=== PATIENT | male | born 1985 | race American Indian/Alaskan Native ===

== ENCOUNTER 2017-08-25 19:28 | Emergency (ER) | payer OTHER ==
[2017-08-25 19:28] VITALS: BMI 37.3
[2017-08-25 20:51] VITALS: BP 147/79; PULSE 87; RESP 18; TEMP 98.2; O2SAT 99
[2017-08-25] MEDS ORDERED: Oxycodone/Acetaminophen 5/325 mg Tab PO STA (21:34)
--- NOTE | 2017-08-25 21:44 | ED PDOC ---
Lower Extremity Pain/Injury Time Seen by Provider: 08/25/17 21:24 Chief Complaint (Nursing): Lower Extremity Problem/Injury History Per: Patient History/Exam Limitations: no limitations Onset/Duration Of Symptoms: Days Current Symptoms Are (Timing): Still Present Additional Complaint(s): Patient with no PMHx presenting with R knee swelling/leg pain, states that one week ago he had an injury, went to [facility] [place], had an x-ray done, was seen by outpatient orthopedics and was placed in removable knee brace, states that he was walking today and felt his R knee give out and had severe pain. Took 3 advils prior to arrival. Denies other injuries. Due for MRI tomorrow. Past Medical History Reviewed: Historical Data, Nursing Documentation, Vital Signs Vital Signs: Last Vital Signs Temp 98.2 F 08/25/17 20:48 Pulse 87 08/25/17 20:48 Resp 18 08/25/17 20:48 BP 147/79 08/25/17 20:48 Pulse Ox 99 08/25/17 20:48 - Medical History PMH: Denies: Depression - Family History Family History: States: Unknown Family Hx - Home Medications Home Medications: Ambulatory Orders Medication Instructions Recorded Ondansetron ODT [Zofran ODT] 8 mg PO TID #30 odt 04/27/17 Ibuprofen [Motrin] 600 mg PO Q6 PRN #30 tab 08/15/17 - Allergies Allergies/Adverse Reactions: Allergies Allergy/AdvReac Type Severity Reaction Status Date / Time No Known Allergies Allergy Verified 08/25/17 20:48 Review of Systems Musculoskeletal: Positive for: Leg Pain Physical Exam - Reviewed Nursing Documentation Reviewed: Yes Vital Signs Reviewed: Yes - Physical Exam Appears: Positive for: Well, Non-toxic, No Acute Distress Head Exam: Positive for: ATRAUMATIC, NORMAL INSPECTION, NORMOCEPHALIC Extremity: Positive for: Tenderness (R knee with effusoin, decreased ROM 2/2 to pain and swelling, NV intact, 2+ DP's, neg Homanns sign), Swelling - Laboratory Results Result Diagrams: 08/25/17 23:55 08/25/17 23:55 - ECG O2 Sat by Pulse Oximetry: 99 Pulse Ox Interpretation: Normal Medical Decision Making Medical Decision MakinPM A/P: Hx of knee injury presenting with increased swelling -likely pain secondary to increased swelling secondary to possible ligamentous injury -will get CT to r/o furhter pathology, U/S to r/o DVT -pain control -will re-eval 6 US DUPLEX LOWER EXTREMITY VEIN RT Deep veins: Normal color and spectral Doppler flow. Normal compressibility. No deep vein thrombosis. Superficial veins: No thrombosis. Soft tissues: No popliteal cyst. IMPRESSION: No evidence of DVT within right lower extremity. EXAM: CT Right Lower Extremity Without Intravenous Contrast, Knee CLINICAL HISTORY: 32 years old, male; Pain; Knee; Left; Additional info: Worsening r knee swelling /pain after injury 1 wk TECHNIQUE: Axial computed tomography images of the right knee without intravenous contrast. All CT scans at this facility use one or more dose reduction techniques, viz.: automated exposure control; ma/kV adjustment per patient size (including targeted exams where dose is matched to indication; i.e. head); or iterative reconstruction technique. Coronal and sagittal reformatted images were created and reviewed. COMPARISON: No relevant prior studies available. FINDINGS: Bones/joints: No acute fracture. Osteochondral abnormality with few adjacent loose fragments along posterior aspect of medial femoral condyle. Mild osteoarthrosis of medial compartment. Early osteoarthrosis of patellofemoral compartment. Lateral patellar subluxation. No dislocation. Moderate joint effusion. Soft tissues: Mild anterior soft tissue swelling/fluid. IMPRESSION: 1. Osteochondral abnormality of medial femoral condyle, unstable. 2. Incidental/non-acute findings are described above. 130AM After adequate pain control, patient is now able to bend leg. Spoke with Dr. Guevara Palomares who recommends patient to be non-weight bearing. Will give outpatient referral informatoin, patient feeling much impoved. Crutches and knee immobilizer applied. Scribe Attestation: Documented by Nancy Benson acting as a scribe for Rogers Spring MD. Scribe Attestation: All medical record entries made by the Scribe were at my direction and personally dictated by me. I have reviewed the chart and agree that the record accurately reflects my personal performance of the history, physical exam, medical decision making, and the department course for this patient. I have also personally directed, reviewed, and agree with the discharge instructions and disposition. Disposition - Clinical Impression Clinical Impression: Knee pain - Patient ED Disposition Is Patient to be Admitted: No - Disposition Referrals: Ed Dia MD [Staff Provider] - Disposition: Routine/Home Disposition Time: 02:00 Condition: IMPROVED Instructions: Knee Pain, Joint Pain Forms: [facility] ([place])
--- NOTE | 2017-08-25 23:21 | CT ---
EXAM: CT Right Lower Extremity Without Intravenous Contrast, Knee CLINICAL HISTORY: 32 years old, male; Pain; Knee; Left; Additional info: Worsening r knee swelling/pain after injury 1 wk TECHNIQUE: Axial computed tomography images of the right knee without intravenous contrast. All CT scans at this facility use one or more dose reduction techniques, viz.: automated exposure control; ma/kV adjustment per patient size (including targeted exams where dose is matched to indication; i.e. head); or iterative reconstruction technique. Coronal and sagittal reformatted images were created and reviewed. COMPARISON: No relevant prior studies available. FINDINGS: Bones/joints: No acute fracture. Osteochondral abnormality with few adjacent loose fragments along posterior aspect of medial femoral condyle. Mild osteoarthrosis of medial compartment. Early osteoarthrosis of patellofemoral compartment. Lateral patellar subluxation. No dislocation. Moderate joint effusion. Soft tissues: Mild anterior soft tissue swelling/fluid. IMPRESSION: 1. Osteochondral abnormality of medial femoral condyle, unstable. 2. Incidental/non-acute findings are described above.
--- NOTE | 2017-08-25 23:27 | US ---
EXAM: US Duplex Right Lower Extremity Veins CLINICAL HISTORY: 32 years old, male; Signs and symptoms; Swelling of limb; Lower extremity, right; Additional info: Leg swelling after injury, R/O dvt TECHNIQUE: Real-time duplex ultrasound scan of the right lower extremity veins integrating B-mode two-dimensional vascular structure, Doppler spectral analysis, color flow Doppler imaging and compression. COMPARISON: No relevant prior studies available. FINDINGS: Deep veins: Normal color and spectral Doppler flow. Normal compressibility. No deep vein thrombosis. Superficial veins: No thrombosis. Soft tissues: No popliteal cyst. IMPRESSION: No evidence of DVT within right lower extremity.
[2017-08-25] MEDS ORDERED: Morphine 4 MG/ML VIAL IVP STA (23:30)
[2017-08-25] MEDS ORDERED: Morphine 4 MG/ML VIAL ONE (23:37)
[2017-08-26 00:51] LABS: HEMOGLOBIN 13.8 g/dL (12.0-18.0); MEAN CELL VOLUME 90.9 fl (80.0-94.0); MEAN CORPUSCULAR HEMOGLOBIN 30.3 pg (27.0-31.0); MEAN CORPUSCULAR HGB CONC 33.3 g/dL (33.0-37.0); RBC 4.57 Mil/uL (4.40-5.90); RED CELL DISTRIBUTION WIDTH 13.3 % (11.5-14.5); WHITE BLOOD COUNT 11.9 K/uL (4.8-10.8)
[2017-08-26 01:04] LABS: BLOOD UREA NITROGEN 20 mg/dl (9-20); CALCIUM 9.4 mg/dL (8.4-10.2); GFR AFRICAN-AMERICAN > 60; GFR NON-AFRICAN AMERICAN > 60; INR 1.2 (0.9-1.2); PARTIAL THROMBOPLASTIN TIME 29.4 Seconds (25.6-37.1); PROTHROMBIN TIME 13.1 Seconds (9.8-13.1)
== END 2017-08-26 02:44 | disposition home or self-care (01) ==
LOC: H.ER 19:28
DX: M25.561 Pain in right knee (principal)
CPT/HCPCS: 29530; 73700; 80048; 83605; 85027; 85610; 85730; 86850; 86900; 93971; 96374; 99283; J2405; L1830